=== PATIENT | male | born 1965 | race Two or more races ===

== ENCOUNTER 2023-11-29 15:15 | Outpatient (CLI) | payer MEDICAID, OTHER | END 2023-11-29 23:59 | disposition home or self-care (01) | LOC: CARD DIAG 15:15 | PROVIDERS: ATTEND Dental Hygienist | DX: I08.8 Other rheumatic multiple valve diseases (principal); I10 Essential (primary) hypertension; R53.83 Other fatigue | CPT/HCPCS: 93306 ==

== ENCOUNTER 2023-11-29 16:21 | Emergency (ER) | payer MEDICAID ==
[~2023-11-29] VITALS: Ht 182.9 cm; Wt 68.9 kg
[2023-11-29 16:54] VITALS: BP_DIAS 175; TEMP 98.6; O2SAT 98
[2023-11-29 17:06] VITALS: BP_SYST 281; PULSE 97
[2023-11-29] MEDS: hydrALAZINE 20mg/ml inj. IV ONE (17:06)
[2023-11-29 17:07] VITALS: RESP 16
[2023-11-29 17:18] LABS: BASOPHILS # (AUTO) 0.2 X10'3 (0-0.2); BASOPHILS % (AUTO) 1.9 % (0-1); EOSINOPHILS # (AUTO) 0.1 X10'3 (0-0.9); EOSINOPHILS % (AUTO) 1.1 % (0-6); HEMATOCRIT 51.7 % (42.0-52.0); HEMOGLOBIN 17.6 g/dl (14.0-17.9); LYMPHOCYTES # (AUTO) 0.6 X10'3 (1.1-4.8); LYMPHOCYTES % (AUTO) 7.8 % (21-51); MEAN CORPUSCULAR HEMOGLOBIN 30.5 PG (27.0-31.0); MEAN CORPUSCULAR VOLUME 89.9 FL (78-98); MEAN PLATELET VOLUME 8.8 FL (7.4-10.4); MONOCYTES # (AUTO) 0.5 X10'3 (0-0.9); MONOCYTES % (AUTO) 5.9 % (2-12); NEUTROPHILS # (AUTO) 6.8 X10'3 (1.8-7.7); NEUTROPHILS % (AUTO) 83.3 % (42-75); PLATELET COUNT 141 X10'3 (140-440); RED BLOOD COUNT 5.75 X10'6 (4.70-6.10); RED CELL DISTRIBUTION WIDTH 13.5 % (11.5-14.5); WHITE BLOOD COUNT 8.1 X10'3 (4.5-11.0)
[2023-11-29] MEDS ORDERED: hydrALAZINE 20mg/ml inj. IV ONE (17:30)
[2023-11-29 17:34] LABS: ALBUMIN 3.9 G/DL (3.4-5.0); ANION GAP 6 (8-16); BLOOD UREA NITROGEN 16 MG/DL (7-18); BUN/CREATININE RATIO 13.1 (10.0-20.0); CALCIUM 9.8 MG/DL (8.5-10.1); CHLORIDE 101 MMOL/L (99-107); CREATININE 1.22 MG/DL (0.60-1.10); GLUCOSE 102 MG/DL (70-104); POTASSIUM 3.8 MMOL/L (3.5-5.1); PRO BRAIN NATRIURETIC PEPTIDE 1486 PG/ML (0-125); SODIUM 138 MMOL/L (135-145); TOTAL CARBON DIOXIDE 31.5 MMOL/L (24-32); eCRCL 64 ML/MIN; eGFR 61 ML/MIN
== END 2023-11-29 18:40 | disposition left against medical advice (07) ==
LOC: ER 16:21
DX: I10 Essential (primary) hypertension (principal)
CPT/HCPCS: 36415; 71045; 80048; 83880; 84484; 85025; 93005; 96374; 99285; J0360

== ENCOUNTER 2024-03-29 10:54 | Inpatient (IN) | payer BC, MEDICAID ==
[~2024-03-29] VITALS: Ht 182.9 cm; Wt 79.9 kg
[2024-03-29] MEDS: diltiazem 5mg/ml 5ml inj. IV ONE (11:29)
[2024-03-29 11:47] LABS: BASOPHILS % (AUTO) 0.4 % (0-1); EOSINOPHILS # (AUTO) 0.5 X10'3 (0-0.9); EOSINOPHILS % (AUTO) 6.8 % (0-6); HEMOGLOBIN 16.1 g/dl (14.0-17.9); LYMPHOCYTES # (AUTO) 1.2 X10'3 (1.1-4.8); LYMPHOCYTES % (AUTO) 16.7 % (21-51); MEAN CORPUSCULAR HEMOGLOBIN 30.6 PG (27.0-31.0); MEAN CORPUSCULAR HGB CONC 34.2 g/dL (33.0-36.5); MEAN CORPUSCULAR VOLUME 89.6 FL (78-98); MEAN PLATELET VOLUME 8.6 FL (7.4-10.4); MONOCYTES # (AUTO) 0.8 X10'3 (0-0.9); MONOCYTES % (AUTO) 10.9 % (2-12); NEUTROPHILS # (AUTO) 4.5 X10'3 (1.8-7.7); NEUTROPHILS % (AUTO) 65.2 % (42-75); PLATELET COUNT 140 X10'3 (140-440); RED BLOOD COUNT 5.24 X10'6 (4.70-6.10); RED CELL DISTRIBUTION WIDTH 14.4 % (11.5-14.5)
[2024-03-29] MEDS ORDERED: diltiazem-D5W 125mg/125ml 125 ML IV SCH (11:50)
[2024-03-29] MEDS: diltiazem-NS 100mg/100ml 125 ML IV ONE (11:56)
[2024-03-29] MEDS: diltiazem-NS 100mg/100ml 125 ML IV SCH (12:04)
[2024-03-29 12:05] LABS: ALANINE AMINOTRANSFERASE 13 U/L (12-78); ALBUMIN 3.2 G/DL (3.4-5.0); ALBUMIN/GLOBULIN RATIO 0.8 (1.1-1.5); ALKALINE PHOSPHATASE 97 IU/L (46-116); ANION GAP 10 (8-16); ASPARTATE AMINO TRANSFERASE 17 U/L (10-37); BILIRUBIN,TOTAL 0.9 MG/DL (0.1-1.0); BLOOD UREA NITROGEN 15 MG/DL (7-18); BUN/CREATININE RATIO 10.1 (10.0-20.0); CHLORIDE 99 MMOL/L (99-107); CREATININE 1.49 MG/DL (0.60-1.10); GLUCOSE 176 MG/DL (70-104); POTASSIUM 3.9 MMOL/L (3.5-5.1); SODIUM 137 MMOL/L (135-145); TOTAL PROTEIN 7.3 G/DL (6.4-8.2); eCRCL 55 ML/MIN; eGFR 48 ML/MIN
[2024-03-29 12:12] LABS: PRO BRAIN NATRIURETIC PEPTIDE 1872 PG/ML (0-125)
[2024-03-29] MEDS: niCARDipine-NS 40mg/200ml IVPB 200 ML IV SCH (12:44)
[2024-03-29] MEDS: cloNIDine 0.1 mg tablet PO ONE (12:44)
[2024-03-29] MEDS ORDERED: potassium Cl 20 mEq SR tablet PO PRN ×2 (13:15)
[2024-03-29] MEDS ORDERED: magnesium Cl slow-release 64mg tablet PO PRN (13:15)
[2024-03-29] MEDS ORDERED: HYDROcodone/acetaminophen 5mg/325mg tablet PO PRN (13:15)
[2024-03-29] MEDS ORDERED: magnesium sulf-water 2g/50mL 50 ML IV PRN (13:15)
[2024-03-29] MEDS ORDERED: ondansetron/PF 4mg/2ml inj IV PRN (13:15)
[2024-03-29] MEDS: diltiazem-NS 100mg/100ml 100 ML IV SCH (13:15)
[2024-03-29] MEDS ORDERED: potassium Cl 40MEQ/1/2NS 520ml 520 ML IV PRN (13:15)
[2024-03-29] MEDS ORDERED: morphine 2 MG/ML inj. syringe IV PRN (13:15)
[2024-03-29] MEDS ORDERED: magnesium sulf-water 4G/100mL 100 ML IV PRN (13:15)
[2024-03-29] MEDS ORDERED: acetaminophen 325mg tablet PO PRN ×2 (13:15)
[2024-03-29] MEDS: normal saline 1000ml 1,000 ML IV SCH (13:32)
[2024-03-29] MEDS: amLODIPine 5mg tablet PO ONE (13:44)
[2024-03-29] MEDS: lisinopril 10 MG tablet PO SCH (13:52)
[2024-03-29] MEDS ORDERED: NO HOME MEDS (16:29)
[2024-03-29 17:10] VITALS: TEMP 97.7
[2024-03-29] MEDS: apixaban 5mg tablet PO SCH (20:00)
[2024-03-29] MEDS ORDERED: heparin, porcine 5000 units/ml vial SQ SCH (20:00)
[2024-03-30] VITALS (15 sets, daily range): BP systolic 156–213; BP diastolic 84–120; PULSE 80–114; RESP 10–22; O2SAT 93–98
[2024-03-30 03:16] LABS: BASOPHILS % (AUTO) 0.5 % (0-1); EOSINOPHILS # (AUTO) 0.4 X10'3 (0-0.9); HEMATOCRIT 41.3 % (42.0-52.0); HEMOGLOBIN 13.9 g/dl (14.0-17.9); LYMPHOCYTES # (AUTO) 1.5 X10'3 (1.1-4.8); MEAN CORPUSCULAR HEMOGLOBIN 30.8 PG (27.0-31.0); MEAN CORPUSCULAR HGB CONC 33.8 g/dL (33.0-36.5); MEAN CORPUSCULAR VOLUME 91.2 FL (78-98); MEAN PLATELET VOLUME 8.7 FL (7.4-10.4); MONOCYTES # (AUTO) 0.8 X10'3 (0-0.9); MONOCYTES % (AUTO) 11.3 % (2-12); NEUTROPHILS # (AUTO) 4.6 X10'3 (1.8-7.7); NEUTROPHILS % (AUTO) 63.2 % (42-75); PLATELET COUNT 153 X10'3 (140-440); RED BLOOD COUNT 4.52 X10'6 (4.70-6.10); RED CELL DISTRIBUTION WIDTH 14.4 % (11.5-14.5); WHITE BLOOD COUNT 7.2 X10'3 (4.5-11.0)
[2024-03-30 03:41] LABS: ALANINE AMINOTRANSFERASE 13 U/L (12-78); ALBUMIN 2.4 G/DL (3.4-5.0); ALBUMIN/GLOBULIN RATIO 0.7 (1.1-1.5); ALKALINE PHOSPHATASE 80 IU/L (46-116); ANION GAP 5 (8-16); ASPARTATE AMINO TRANSFERASE 18 U/L (10-37); BILIRUBIN,TOTAL 0.4 MG/DL (0.1-1.0); BLOOD UREA NITROGEN 21 MG/DL (7-18); BUN/CREATININE RATIO 13.6 (10.0-20.0); CALCIUM 8.6 MG/DL (8.5-10.1); CHLORIDE 104 MMOL/L (99-107); CREATININE 1.54 MG/DL (0.60-1.10); GLUCOSE 142 MG/DL (70-104); POTASSIUM 3.7 MMOL/L (3.5-5.1); SODIUM 139 MMOL/L (135-145); TOTAL CARBON DIOXIDE 30.1 MMOL/L (24-32); TOTAL PROTEIN 5.8 G/DL (6.4-8.2); eCRCL 53 ML/MIN; eGFR 46 ML/MIN
[2024-03-30 04:32] LABS: HEMOGLOBIN A1C 5.2 % (4.5-6.2)
[2024-03-30] MEDS: diltiazem-NS 100mg/100ml 100 ML IV SCH ×2 (12:16→14:05)
[2024-03-30] MEDS: cloNIDine 0.1 mg tablet PO SCH (13:00)
[2024-03-30] MEDS: labetalol 100mg tablet PO SCH (13:09)
[2024-03-30] MEDS ORDERED: niCARDipine-NS 40mg/200ml IVPB 200 ML IV SCH (17:45)
[2024-03-30 17:58] LABS: CHOL/HDL RATIO 3.2 (0.00-4.99); CHOLESTEROL 133 MG/DL (0-200); HDL CHOLESTEROL 42 MG/DL (35-60); LDL CHOLESTEROL 81 MG/DL (50-100); TRIGLYCERIDES 70 MG/DL (20-135)
[2024-03-30] MEDS: aspirin 81mg tab.chew PO ONE (18:00)
[2024-03-30] MEDS: nitroGLYCERIN 0.4mg SUBLingual tab SL ONE (18:00)
[2024-03-30] MEDS: diltiazem 30mg tablet PO SCH (18:00)
[2024-03-31] MEDS ORDERED: atorvastatin 20mg tablet PO SCH (08:00)
[2024-03-31] MEDS ORDERED: aspirin 81mg, enteric-coated 1 TAB TABLET.DR PO SCH (08:00)
== END 2024-03-30 18:00 | disposition left against medical advice (07) | DRG 305 ==
LOC: ER 10:54 → ED HOLD 13:22 → EDBEDREQ 03-30 02:56 → CICU 2S 03-30 04:42
PROVIDERS: ADMIT Internal Medicine; ATTEND Internal Medicine
DX: I16.0 Hypertensive urgency (principal); I48.20 Chronic atrial fibrillation, unspecified; E11.9 Type 2 diabetes mellitus without complications; I10 Essential (primary) hypertension; Z53.29 Procedure and treatment not carried out because of patient's decision for other reasons; R00.0 Tachycardia, unspecified; Z91.148 Patient's other noncompliance with medication regimen for other reason; Z82.49 Family history of ischemic heart disease and other diseases of the circulatory system
CPT/HCPCS: 36415; 71045; 80053; 80061; 82948; 83036; 83880; 84484; 85025; 87081; 93005; 93306; G0378; J3490; J7030; J7050

== ENCOUNTER 2024-04-10 16:06 | Emergency (ER) | payer BC, MEDICAID ==
[~2024-04-10] VITALS: Ht 182.9 cm; Wt 79.5 kg
[~2024-04-10 16:06] MED LIST: NO HOME MEDS
[2024-04-10] MEDS: cloNIDine 0.1 mg tablet PO ONE (21:46)
[2024-04-10] MEDS ORDERED: LOSA-416 PO (22:31)
[2024-04-10 22:42] VITALS: BP 207/117; PULSE 91; RESP 14; TEMP 98; O2SAT 98
== END 2024-04-10 22:55 | disposition home or self-care (01) ==
LOC: ER 16:06
DX: I10 Essential (primary) hypertension (principal)
CPT/HCPCS: 99285; J7030